=== PATIENT | male | born 1955 | race Caucasian/White ===

== ENCOUNTER 2024-05-20 11:13 | Inpatient (IN) | payer MEDICARE ==
[~2024-05-20] VITALS: Ht 170.2 cm; Wt 62.6 kg
[2024-05-20] MEDS: IV NS 0.9% 500 ML BAG IV ONE (11:28)
[2024-05-20] MEDS ORDERED: ACETAMINOPHEN ES 500 MG TABLET ONE (11:38)
[2024-05-20] MEDS: ACETAMINOPHEN ES 500 MG TABLET PO ONE (11:45)
[2024-05-20 12:25] LABS: BASOPHILS % (AUTO) 0.2 % (0.0-2.0); HEMATOCRIT 39 % (39-51); HEMOGLOBIN 12.6 g/dL (13.5-17.5); LYMPHOCYTES # (AUTO) 1.9 K/uL (0.8-4.8); LYMPHOCYTES % (AUTO) 11.3 % (20.0-44.0); MEAN CORPUSCULAR HEMOGLOBIN 30 PG (26.0-33.0); MEAN CORPUSCULAR HGB CONC 33 g/dl (31.0-36.0); MEAN CORPUSCULAR VOLUME 92 fL (80-96); MONOCYTES # (AUTO) 1.8 K/uL (0.1-1.30); NEUTROPHILS % (AUTO) 77.5 % (43.0-81.0); PLATELET COUNT (AUTO) 171 K/uL (150-450); RED BLOOD CELL COUNT(AUTO) 4.21 MIL/uL (4.5-6.0); RED CELL DISTRIBUTION WIDTH 14.7 % (11.5-15.0); WHITE BLOOD COUNT (AUTO) 16.8 K/uL (4.3-11.0)
[2024-05-20 12:33] LABS: CALCIUM, SERUM 9.1 mg/dL (8.5-10.1); CARBON DIOXIDE 27 mmol/L (21-32); CHLORIDE 106 mmol/L (98-107); CREATININE 0.9 mg/dL (0.6-1.3); GLUCOSE 114 mg/dL (74-106); POTASSIUM 4.9 mmol/L (3.5-5.1); SODIUM SERUM 137 mmol/L (136-145); UREA NITROGEN, BLOOD 22 mg/dL (7-18)
[2024-05-20 13:51] LABS: APPEARANCE,URINE SLIGHTLY CLOUDY (CLEAR); BILIRUBIN,URINE NEGATIVE (NEGATIVE); BLOOD, URINE NEGATIVE Ery/uL (NEGATIVE); COLOR,URINE YELLOW (YELLOW); KETONES,URINE NEGATIVE (NEGATIVE); LEUKOCYTE ESTERASE ,URINE TRACE (NEGATIVE); NITRITE, URINE POSITIVE (NEGATIVE); PH,URINE 5.5 (5.0-8.0); PROTEIN,URINE NEGATIVE (NEGATIVE); UGLUCOSE NEGATIVE (NEGATIVE); UROBILINOGEN,URINE 0.2 EU/dL (0.2)
[2024-05-20 14:12] LABS: ADD URINE CULTURE YES; BACTERIA,URINE 1+ /HPF (None Seen); RBC,URINE 0-2 /HPF (0-2)
[2024-05-20] MEDS ORDERED: TACR1CAP2 PO (14:25)
[2024-05-20] MEDS ORDERED: MAG30ORA PO (14:25)
[2024-05-20] MEDS ORDERED: AMIO200T5 PO (14:25)
[2024-05-20] MEDS ORDERED: ACET325T53 PO (14:25)
[2024-05-20] MEDS ORDERED: INSU100I30 SQ (14:25)
[2024-05-20] MEDS ORDERED: CARV25TA2 PO (14:25)
[2024-05-20] MEDS ORDERED: VALS160T2 PO (14:25)
[2024-05-20] MEDS ORDERED: ROSU40TA PO (14:25)
[2024-05-20] MEDS ORDERED: AMLO-212 PO (14:25)
[2024-05-20] MEDS ORDERED: FAMO20TA8 PO (14:25)
[2024-05-20] MEDS ORDERED: DOCU-160 PO (14:25)
[2024-05-20] MEDS ORDERED: DOCU100C36 PO (14:25)
[2024-05-20] MEDS ORDERED: TRAZ-257 PO (14:25)
[2024-05-20] MEDS ORDERED: SITA100T PO (14:25)
[2024-05-20] MEDS ORDERED: ACET-73 PO (14:25)
[2024-05-20] MEDS ORDERED: APIX5TAB PO (14:25)
[2024-05-20 17:00] VITALS: BP 101/69; TEMP 98.6; O2SAT 98
[2024-05-20] MEDS: AMLODIPINE BESYLATE 5 MG TABLET PO SCH (17:00)
[2024-05-20] MEDS: CARVEDILOL 12.5 MG TABLET PO SCH (17:00)
[2024-05-20] MEDS ORDERED: MAG HYDROX/AL HYDROX/SIMETH 30 ML UDC PO PRN (17:00)
[2024-05-20] MEDS ORDERED: TRAZODONE 50 MG TABLET PO PRN (17:00)
[2024-05-20] MEDS: APIXABAN 5 MG TABLET PO SCH (17:31)
[2024-05-20] MEDS: ACETAMINOPHEN 325 MG TABLET PO PRN (17:37)
[2024-05-20] MEDS: FAMOTIDINE (20 MG) 20 MG TABLET PO SCH (17:39)
[2024-05-20] MEDS: AMIODARONE HCL 200 MG TABLET PO SCH (17:39)
[2024-05-20] MEDS: CEFTRIAXONE 1 G in IV D5W 50 ML IV SCH (17:59)
[2024-05-20 20:00] VITALS: BP_SYST 112; BP_SYST 138; BP_DIAS 59; TEMP 98.2; O2SAT 98
[2024-05-20] MEDS: ATORVASTATIN 40 MG TABLET PO SCH (21:22)
[2024-05-20] MEDS: TACROLIMUS ANHYDROUS 0.5 MG CAPSULE PO SCH (21:22)
[2024-05-20] MEDS: INSULIN GLARGINE, 100 UNIT/ML CARTRIDGE SQ SCH (22:19)
[2024-05-21] VITALS: BP 114/56; TEMP 98.1; O2SAT 97
[2024-05-21] MEDS: IBUPROFEN 400 MG TABLET PO PRN (00:01)
[2024-05-21 04:00] VITALS: BP 109/70; TEMP 97.2; O2SAT 98
[2024-05-21 08:00] VITALS: BP 102/58; TEMP 97.5; O2SAT 98
[2024-05-21] MEDS ORDERED: Z GUARD REMEDY 4 OZ OINT TP PRN (08:00)
[2024-05-21 08:10] LABS: BASOPHILS % (AUTO) 0.1 % (0.0-2.0); EOSINOPHILS % (AUTO) 0.1 % (0.0-6.0); HEMATOCRIT 35 % (39-51); HEMOGLOBIN 11.9 g/dL (13.5-17.5); LYMPHOCYTES # (AUTO) 1.6 K/uL (0.8-4.8); LYMPHOCYTES % (AUTO) 13.8 % (20.0-44.0); MEAN CORPUSCULAR HEMOGLOBIN 30 PG (26.0-33.0); MEAN CORPUSCULAR HGB CONC 34 g/dl (31.0-36.0); MEAN CORPUSCULAR VOLUME 89 fL (80-96); MONOCYTES # (AUTO) 1.3 K/uL (0.1-1.30); MONOCYTES % (AUTO) 11.7 % (2.0-12.0); NEUTROPHILS # (AUTO) 8.5 K/uL (1.8-8.9); NEUTROPHILS % (AUTO) 74.3 % (43.0-81.0); PLATELET COUNT (AUTO) 149 K/uL (150-450); RED BLOOD CELL COUNT(AUTO) 3.98 MIL/uL (4.5-6.0); RED CELL DISTRIBUTION WIDTH 14.9 % (11.5-15.0); WHITE BLOOD COUNT (AUTO) 11.4 K/uL (4.3-11.0)
[2024-05-21 08:21] LABS: CALCIUM, SERUM 9.1 mg/dL (8.5-10.1); CREATININE 1.1 mg/dL (0.6-1.3); MAGNESIUM 1.6 mg/dL (1.8-2.4); PHOSPHORUS 2.4 mg/dL (2.5-4.9); POTASSIUM 4.3 mmol/L (3.5-5.1)
[2024-05-21] MEDS: LOSARTAN POTASSIUM 50 MG TABLET PO SCH (08:35)
[2024-05-21] MEDS ORDERED: LINAGLIPTIN 5 MG TABLET PO SCH ×2 (09:00→09:15)
[2024-05-21] MEDS: MAGNESIUM OXIDE 400 MG TABLET PO ONE (09:29)
[2024-05-21] MEDS: LINAGLIPTIN 5 MG TABLET PO SCH (09:40)
[2024-05-21] MEDS: Z GUARD REMEDY 4 OZ OINT TP SCH (09:55)
[2024-05-21 12:00] VITALS: BP 118/54; TEMP 97.5; O2SAT 98
[2024-05-21 12:23] LABS: THYROID STIMULATING HORMONE 0.8 uIU/mL (0.358-3.74)
[2024-05-21 16:00] VITALS: BP 130/65; TEMP 97.9; O2SAT 98
[2024-05-21] MEDS: K PHOS NEUTRAL 250 MG TABLET PO ONE (16:18)
[2024-05-21] MEDS: ONDANSETRON HCL/PF 4 MG/2 ML VIAL IVP PRN (16:24)
[2024-05-21 20:00] VITALS: BP 125/62; TEMP 98.1; O2SAT 100
[2024-05-22] VITALS: BP 117/61; TEMP 98.1; O2SAT 98
[2024-05-22 05:13] VITALS: BP 129/59; TEMP 98.1; O2SAT 98
[2024-05-22 08:00] VITALS: BP 118/54; TEMP 97.4; O2SAT 100
[2024-05-22] MEDS ORDERED: CEPH500C2 PO (10:18)
[2024-05-22 12:00] VITALS: BP 117/56; TEMP 98.7; O2SAT 98
[2024-05-23 00:06] LABS: FOLIC ACID > 20.0 ng/mL (>3.0)
[2024-05-24 19:10] LABS: VITAMIN B1 THIAMINE,WB 157.5 nmol/L (66.5-200.0)
== END 2024-05-22 15:11 | disposition home health service (06) | DRG 641 ==
LOC: ER 11:15 → TELE1 15:41 → MEDSG1 05-22 10:12
PROVIDERS: ADMIT Nurse Practitioner Acute Care; ATTEND Nurse Practitioner Acute Care
PROC: 0HBRXZZ Excision of Toe Nail, External Approach (ICD-10-PCS; principal; 2024-05-21)
DX: E86.0 Dehydration (principal); N39.0 Urinary tract infection, site not specified; I25.10 Atherosclerotic heart disease of native coronary artery without angina pectoris; K21.9 Gastro-esophageal reflux disease without esophagitis; E11.40 Type 2 diabetes mellitus with diabetic neuropathy, unspecified; E11.621 Type 2 diabetes mellitus with foot ulcer; L60.3 Nail dystrophy; L97.522 Non-pressure chronic ulcer of other part of left foot with fat layer exposed; B35.1 Tinea unguium; E78.5 Hyperlipidemia, unspecified; I10 Essential (primary) hypertension; I48.91 Unspecified atrial fibrillation; G89.29 Other chronic pain; Z86.73 Personal history of transient ischemic attack (TIA), and cerebral infarction without residual deficits; D72.829 Elevated white blood cell count, unspecified; R55 Syncope and collapse; Z85.05 Personal history of malignant neoplasm of liver; Z79.01 Long term (current) use of anticoagulants; B96.89 Other specified bacterial agents as the cause of diseases classified elsewhere
CPT/HCPCS: 36415; 70450-TC; 71045-TC; 80048-TC; 81001; 82607-TC; 82962-TC; 83735-TC; 83921; 84100-TC; 84425; 84443-TC; 84484-TC; 85025-TC; 87086-TC; 92526; 92611-TC; 93307-TC; 97110-TC; 97112-TC; 97530-TC; A4223; G0378; J0696; J1815; J2405; J7040; J7050; J7060; J7507